=== PATIENT | female | born 1945 | race Caucasian/White ===

== ENCOUNTER 2017-04-18 12:20 | Inpatient (IN) | payer MEDICARE, OTHER ==
--- NOTE | ~2017-04-18 | HP ---
History And Physical [id number] [place]. [address] NAME: BLAIRE GARCÍA : 43 STATUS : ADM Shruti PAT#: [id number] AGE: 72 ADM/REG DATE : 04/18/17 MR#: [id number] REPORT SERV DATE: 04/18/17 DICTATED BY: OSMANY DURAN DATE: 04/18/17 REPORT STATUS : Draft TRANSCRIBED BY: MODL DATE: 04/18/17 DATE OF ADMISSION: 04/18/2017 ATTENDING PHYSICIAN: Dr. Talbert. REASON FOR ADMISSION: Septicemia with acute renal failure. Advanced dementia. HISTORY: This is a 72-year-old white female, who lives at [facility] in [place]. She was hospitalized here in 2014 with dementia and had a tPA for an acute stroke. She has had a decline so that she is bed-ridden there with extension contractures of her ankles. She has a chronic indwelling Freire catheter. She developed nausea, vomiting, diarrhea, and altered mental status and was sent to the emergency room where she was evaluated by Dr. Maki initially. She is not to be resuscitated in the event of cardiac arrest and Dr. Maki has confirmed this with the written DNR order. She is followed by Dr. Royce Talley at the correction. PAST MEDICAL HISTORY: She was hospitalized with DKA in 2014 and subsequently with a stroke. TPA was given and because of her advanced dementia, no clot retrieval was attempted at [facility]. She remains in the correction at [facility] in [place] and is followed by Dr. Talley. No family is here with her. HOME MEDICATIONS: Include the following: Tylenol 325 two p.o. q.4 hours p.r.n. pain; aspirin 81 mg p.o. daily; atenolol 25 mg p.o. b.i.d.; atorvastatin 20 mg p.o. at bedtime; cyproheptadine 4 mg p.o. three times a day; Aricept 10 mg p.o. daily; Lexapro 20 mg p.o. daily; Pepcid 20 mg p.o. at bedtime; hydralazine 50 mg p.o. q.8 hours; hydroxyzine every six hours scheduled for itching; NovoLog before meals and bedtime; Levemir 15 units at bedtime and 17 units in the daytime; losartan 50 mg p.o. daily; Memantine 10 mg p.o. twice a day; Glucophage 500 mg p.o. b.i.d.; mirtazapine 15 mg p.o. at bedtime; nitroglycerin sublingually p.r.n.; acetaminophen 325 q.4 hours p.r.n.; Halfprin; and atenolol 25 mg p.o. b.i.d. ALLERGIES: PENICILLIN. SOCIAL HISTORY: Obtained from old records. The patient was . Her ex- and her grandchildren live with her and help take care of her. She quit smoking cigarettes 20 to 24 years ago. No alcohol was admitted to in the past and there is a denial of illicit drugs. FAMILY HISTORY: Her mother and father are from motor vehicle accident. Siblings are unknown. REVIEW OF SYSTEMS: Not obtainable from the patient who is in an insomnolent and noncommunicative state. PHYSICAL EXAMINATION: History And Physical [address] [address] NAME: BLAIRE GARCÍA : 43 STATUS : ADM Shruti PAT#: [id number] AGE: 72 ADM/REG DATE : 04/18/17 MR#: [id number] REPORT SERV DATE: 04/18/17 DICTATED BY: OSMANY DURAN DATE: 04/18/17 REPORT STATUS : Draft TRANSCRIBED BY: AVELINO DATE: 04/18/17 GENERAL: This is an elderly white female, in no acute distress. VITAL SIGNS: Her blood pressure initially was 125/60 with a heart rate of 70, respiratory rate 16, afebrile, and oxygen saturation 98%. HEENT: EOMI. Sclerae clear. Conjunctivae pink. She opens her eyes and regards me. She made one phonetic guttural utterance and grunting sound but will not speak and not respond to verbal stimulus and will not engage. NECK: No bruit or thyromegaly. CHEST: Clear anteriorly and laterally. HEART: Regular S1, S2 without murmur, gallop, or click. ABDOMEN: Grossly obese. Nontender. Bowel sounds positive. No HSM. She does have flanks with edema bilaterally. EXTREMITIES: She has 1+ pitting edema of her legs. She has extension contractures of the ankles. There are some purple blue areas on the inner rim around the knees. Distal pulses are not palpable. NEUROLOGIC: She does not move to plantar stimulation. Engraver [place], she did not cooperate with gripping. Distal pulses are intact at the radial artery. : There is a Freire catheter in place in the perineum, dark urine. There is a pacemaker in the left chest and anterior surgical incision with likely CABG in the past. NEUROLOGIC: She does not move to plantar stimulation. LYMPHATICS: There is no adenopathy palpable. SKIN: Pale and cool in the hands. LABORATORY DATA: Her white count was 27,900, hemoglobin 10.8, hematocrit 33.7, and platelets are 188,000. Her sodium is 141, potassium 5.7, chloride 108, CO2 of 18, BUN 117, creatinine 4.31, glucose 104, albumin 2.0, and globulin 5.3. Urinalysis showed specific gravity of 1.025 and pH of 8.0. A large leukocyte esterase, small bilirubin, 158 white cells per high-powered field, 5 epithelial squamous cells. Portable chest x-ray shows no acute cardiopulmonary abnormality with CABG and AICD in place. ASSESSMENT: 1. Probably urinary tract infection that has now gone septic. She does have a chronic indwelling Freire catheter. Her white blood cell count elevation, altered mental status, and elevated creatinine are all indicative of severe sepsis. 2. Urinary tract infection. 3. Chronic indwelling Freire catheter. 4. Aphasia. 5. Advanced dementia. 6. Flank edema and lower extremity edema. 7. End-stage renal disease, may be associated with the ARB or the NIKKIE inhibitors. The. 8. The patient is not to be resuscitated in the event of any cardiac arrest. We will give IV fluids. Correct the acidosis. She has been on metformin. She may be having a lactic acidosis. 9. Protein calorie malnutrition. 10.Diabetes type 2. Control blood sugar now. We will reduce the insulin dosing because History And Physical [address] [place]. [address] NAME: BLAIRE GARCÍA : 43 STATUS : ADM Shruti PAT#: [id number] AGE: 72 ADM/REG DATE : 04/18/17 MR#: [id number] REPORT SERV DATE: 04/18/17 DICTATED BY: OSMANY DURAN DATE: 04/18/17 REPORT STATUS : Draft TRANSCRIBED BY: MODL DATE: 04/18/17 she was hypoglycemic on arrival. 11.The patient is aphasic, unable to speak, no family here to interpret, DNR at the correction, we will leave DNR here. I am going to go ahead and treat her urinary tract infection and observe for improvement. Once she returns back to the correction with her AICD, probable systolic congestive heart failure, advanced dementia with no language, she may be a good candidate for hospice care they are within the correction. [place]/AVELINO Osmany Duran M.D. / [id number] CC: Isai Rodriguez MD
--- NOTE | ~2017-04-18 | DS ---
Discharge Summary [facility] [address] [place]. [address] NAME: BLAIRE BROCK : 43 STATUS : DIS IN PAT#: [id number] AGE: 72 ADM/REG DATE : 04/18/17 MR#: [id number] REPORT SERV DATE: 04/21/17 DICTATED BY: ISAI OLIVERA DATE: 04/20/17 REPORT STATUS : Draft TRANSCRIBED BY: MODL DATE: 04/20/17 ADMISSION DATE: 04/18/2017 DISCHARGE DATE: 04/20/2017 DISCHARGE DIAGNOSES: 1. Severe sepsis secondary to Escherichia coli urinary tract infection, and gram-negative monie bacteremia awaiting speciation. 2. Acute renal failure. 3. Hyperkalemia secondary to acute renal failure. 4. Severe dementia with baseline debility, bedridden and nonverbal at baseline. 5. History of stroke. 6. Hypertension. 7. History of automatic implantable cardioverter-defibrillator placement. 8. History of diabetes mellitus. HOSPITAL COURSE: Please refer to the history and physical dictated by admitting physician for full history of this patient. Briefly, this is a patient with severe baseline dementia who lives in a usp with severe debility, who is bed ridden and nonverbal at baseline, who presented from her usp with severe sepsis. Ultimately found to be secondary to an Escherichia coli urinary tract infection as well as a gram-negative monie bacteremia with speciation pending at the time of this dictation. The patient presented in her usual nonverbal state, and was found to have severe sepsis with evidence of end-organ damage including a lactic acidosis as well as a new acute renal failure. She was started on antibiotics and was given IV fluids, which resulted in some improvement in her lactic acidosis. Ultimately her antibiotics were broadened given her history of resistant organisms and she is on cefepime at the time of this dictation. She also presented with acute renal failure with minimal urine output at the first night of her admission despite IV fluids, complicated by hyperkalemia. Her creatinine was 4.31 on admission though with some IV fluids; on last check it had improved to 3.58, she has made a bit more of urine since that time. Given her baseline dementia with severe debility and her baseline bed ridden state, we did discuss her care with both of her daughters, [place], with the assistant professor of education of the palliative care team to discuss her mom's presentation. We talked about the fact that she was quite sick with acute renal failure and severe sepsis with bacteremia, and though we did explain that we felt potentially she could make a turn around and improve a little bit. They did relate to us that their mom many years ago had said to them that she would never want to be in a state that she is in now. Apparently, Ms. Brock's brother had dementia and she was very much afraid of having dementia and being in the hospital. After a very long discussion with the Palliative Care doctors, the daughters did both confirm that their mother would definitely not want to pursue anything like hemodialysis or any sort of invasive procedures or therapeutics even including IV antibiotics or further imaging to workup her condition. This seemed reasonable given the patient's baseline status and so Discharge Summary [address] [id number] [facility] [place]. [address] NAME: BLAIRE BROCK : 43 STATUS : DIS IN PAT#: [id number] AGE: 72 ADM/REG DATE : 04/18/17 MR#: [id number] REPORT SERV DATE: 04/21/17 DICTATED BY: ISAI OLIVERA DATE: 04/20/17 REPORT STATUS : Draft TRANSCRIBED BY: AVELINO DATE: 04/20/17 after much discussion with the family the family decided to transition to hospice care. Given the decision of the family, transition to hospice care, the patient will be discharged today to her usp with all nonessential modifications consistent with comfort to be discontinued. We will discontinue her antibiotics as well as other medications not consistent with comfort per the family's wishes that the patient's new goals of care be focused purely on her comfort. DISCHARGE MEDICATIONS: 1. Aricept 10 mg p.o. at bedtime. 2. Lexapro 20 mg p.o. daily. 3. Mirtazapine 15 mg p.o. at bedtime. 4. Namenda 10 mg p.o. twice per day. 5. Tylenol 650 mg p.o. every 4 hours p.r.n. 6. Zofran 4 mg disintegrating every 4 hours p.r.n. for nausea and vomiting. 7. Senna two tablets p.o. at bedtime p.r.n. for constipation. 8. Hydroxyzine 25 mg p.o. every 6 hours for itching. 9. Cyproheptadine 4 mg p.o. three times daily schedule for itching. 10.Famotidine 20 mg p.o. at bedtime. FOLLOWUP: Again, the patient will be discharged back to her nursing facility with transition to hospice care and comfort measures only. All other nonessential medications have been discontinued. She has not required any narcotics since she has been here, and at the time of this dictation appears very comfortable in her room, though certainly narcotics could be considered should this change. For now her discomfort has been managed well with just Tylenol. Approximately 35 minutes were spent coordinating the discharge of this patient. MIKE/AVELINO Isai Olivera MD / [id number] CC: Isai Olivera MD
[~2017-04-18 12:20] MED LIST: *UNABLE1; APRES50 PO; ARICEPT5 PO; ASAB PO; ATEN25 PO; ATV1 PO; COZ50 PO; DIOV80 PO; DIOVAN PO; DSS PO; FISH OIL PO; FLONASE NAS; GLUCPH PO; GLUMETZA500 MG PO; K-TABS10 MEQ PO; L20 PO; L80 PO; LEVEMIR SC; LEXAPRO20 PO; MEVACOR40 MG PO; NEUR300 PO; NITROSTAT0.4 MG SL; NOVOLOG SC; NOVOLOGMIX SC; PRILOSEC40 MG PO; [UNRECOGNIZED DRUG - OTHER] SC
[2017-04-18 14:05] LABS: ASCORBIC ACID (UR NOT ORDER) NEG (NEG); BILIRUBIN, URINE SMALL (NEG); ER URINALYSIS TAT 0 Hrs 21 Mins; KETONE, URINE NEGATIVE (NEG); LEUKOCYTE ESTERASE(NOT OR LARGE (NEG); NITRITE (URINE) NEG (NEG); WBC (NOT ORDERED) (RFLEX) 158 (0-5)
[2017-04-18 14:27] LABS: BASOPHILS 0.3 %; BASOPHILS ABSOLUTE 0.07 10/3/uL (0.0-0.16); EOSINOPHILS 0.4 %; EOSINOPHILS ABSOLUTE 0.12 10/3/uL (0.0-0.53); HEMATOCRIT 33.7 % (36.0-48.0); HEMOGLOBIN 10.8 g/dL (12.0-16.0); IMMATURE GRANULOCYTES 1.6 %; LYMPHOCYTES 8.8 %; LYMPHOCYTES ABSOLUTE 2.45 10/3/uL (0.67-4.30); MEAN CORPUSCULAR HEMOGLOB 26.1 pg (26.0-34.0); MONOCYTES 8.5 %; MONOCYTES ABSOLUTE 2.36 10/3/uL (0.21-1.20); NEUTROPHILS 80.4 %; NEUTROPHILS ABSOLUTE 22.44 10/3/uL (2.02-8.40); PLATELET COUNT 188 10/3/uL (150-400); RBC DISTRIBUTION WIDTH 15.1 % (12.0-16.0); RED CELL COUNT 4.14 10/6/uL (4.0-5.6)
[2017-04-18 14:31] LABS: ER CBC TAT 0 Hrs 09 Mins; IMMATURE GRANULOCYTES ABSOLUTE 0.45 10/3/uL (0.0-0.11); MANUAL DIFF NO %; MEAN CORPUSCULAR VOLUME 81.4 fL (80-100); WHITE BLOOD CELLS 27.9 10/3/uL (4.5-10.5)
[2017-04-18 14:41] LABS: CALCIUM, SERUM 8.6 MG/DL (8.5-10.4); CHLORIDE, SERUM 106 MMOL/L (96-112); DIRECT BILIRUBIN 0.3 MG/DL (0.0-0.4); INDIRECT BILIRUBIN(NOT ORDER) 0.6 MG/DL (0.1-0.9); SGOT(AST) 51 U/L (5-40); SGPT(ALT) 37 U/L (5-65); TOTAL BILIRUBIN 0.9 MG/DL (0-1.2); TOTAL PROTEIN 7.3 G/DL (6.0-8.5)
[2017-04-18 14:42] LABS: A/G RATIO 0.4 (0.7-1.9); ALKALINE PHOSPHATASE 177 U/L (45-117); BUN (BLOOD UREA NITROGEN) 117 MG/DL (6-23); CO2 (CARBON DIOXIDE) 18 MMOL/L (24-34); CREATININE 4.31 MG/DL (0.55-1.02); GFR AFRICAN AMERICAN 11 ML/MIN (>=60); GFR NON AFRICAN AMERICAN 10 ML/MIN (>=60); GLOBULIN 5.3 G/DL (2.5-4.1); GLUCOSE, SERUM 104 MG/DL (60-99); SODIUM, SERUM 141 MMOL/L (135-148)
[2017-04-18 14:46] LABS: POTASSIUM, SERUM 5.7 MMOL/L (3.5-5.3)
[2017-04-18 14:50] LABS: BAND NEUTROPHILS 3 %; ER DIFF TAT 0 Hrs 28 Mins; LYMPHOCYTES 14 %; LYMPHOCYTES ABSOLUTE (CALC) 3.91 10/3/uL (0.67-4.30); MONOCYTES 2 %; MONOCYTES ABSOLUTE (CALC) 0.56 10/3/uL (0.21-1.20); NEUTROPHILS ABSOLUTE (CALC) 23.44 10/3/uL (2.02-8.40); PLATELET ESTIMATE ADQ (ADEQUATE); RBC MORPHOLOGY NORM (NORMAL); SEGMENTED NEUTROPHIL (0) 81 %; TOTAL NUCLEATED CELLS 100
[2017-04-18] MEDS ORDERED: LEVEMFLXPN SC ×2 (15:10→15:11)
[2017-04-18] MEDS ORDERED: NOVOLOG SC (15:11)
[2017-04-18] MEDS ORDERED: APRES50 PO (15:11)
[2017-04-18] MEDS ORDERED: CYPROHEPTAD4 MG PO (15:12)
[2017-04-18] MEDS ORDERED: HALF81 PO (15:12)
[2017-04-18] MEDS ORDERED: LEXAPRO20 PO (15:12)
[2017-04-18] MEDS ORDERED: COZ50 PO (15:12)
[2017-04-18] MEDS ORDERED: GLUCPH PO (15:13)
[2017-04-18] MEDS ORDERED: VIST25 PO (15:13)
[2017-04-18] MEDS ORDERED: ATEN25 PO (15:13)
[2017-04-18] MEDS ORDERED: NAMENDA10 MG PO (15:13)
[2017-04-18] MEDS ORDERED: PEP20 PO (15:14)
[2017-04-18] MEDS ORDERED: ARICEPT10 PO (15:14)
[2017-04-18] MEDS ORDERED: REM15 PO (15:14)
[2017-04-18] MEDS ORDERED: LIPITOR20 PO (15:14)
[2017-04-18] MEDS ORDERED: NITROSTAT0.4 MG SL (15:15)
[2017-04-18] MEDS ORDERED: T PO (15:15)
[2017-04-19 07:20] LABS: HEMOGLOBIN 9.3 g/dL (12.0-16.0); MEAN PLATELET VOLUME 10.6 fL (9.2-13.0); PLATELET COUNT 192 10/3/uL (150-400); RBC DISTRIBUTION WIDTH 14.9 % (12.0-16.0); RED CELL COUNT 3.58 10/6/uL (4.0-5.6)
[2017-04-19 07:21] LABS: WHITE BLOOD CELLS 26.6 10/3/uL (4.5-10.5)
[2017-04-19 07:22] LABS: HEMATOCRIT 28.2 % (36.0-48.0); MANUAL DIFF YES %; MEAN CORPUSCULAR VOLUME 78.8 fL (80-100)
[2017-04-19 07:30] LABS: BUN (BLOOD UREA NITROGEN) 127 MG/DL (6-23); CALCIUM, SERUM 7.8 MG/DL (8.5-10.4); CHLORIDE, SERUM 107 MMOL/L (96-112); CO2 (CARBON DIOXIDE) 22 MMOL/L (24-34); CREATININE 4.04 MG/DL (0.55-1.02); GFR AFRICAN AMERICAN 12 ML/MIN (>=60); GFR NON AFRICAN AMERICAN 10 ML/MIN (>=60); GLUCOSE, SERUM 198 MG/DL (60-99); POTASSIUM, SERUM 5.4 MMOL/L (3.5-5.3); SODIUM, SERUM 139 MMOL/L (135-148)
[2017-04-19 07:39] LABS: BAND NEUTROPHILS 20 %; LYMPHOCYTES 5 %; LYMPHOCYTES ABSOLUTE (CALC) 1.33 10/3/uL (0.67-4.30); MONOCYTES 5 %; MONOCYTES ABSOLUTE (CALC) 1.33 10/3/uL (0.21-1.20); NEUTROPHILS ABSOLUTE (CALC) 23.94 10/3/uL (2.02-8.40); SEGMENTED NEUTROPHIL (0) 70 %; TOTAL NUCLEATED CELLS 100
[2017-04-19 07:40] LABS: BURR CELLS 1+ (3-10/OIF) (0-2/OIF); PLATELET ESTIMATE ADQ (ADEQUATE); POIKILOCYTOSIS 1+ (5-10/OIF) (0-5/OIF)
[2017-04-19 07:41] LABS: TOXIC GRANULATION 2+
[2017-04-19 12:39] LABS: CREATININE, URINE 60.1 MG/DL
[2017-04-19 17:55] LABS: CALCIUM, SERUM 8.2 MG/DL (8.5-10.4); CHLORIDE, SERUM 106 MMOL/L (96-112); CO2 (CARBON DIOXIDE) 18 MMOL/L (24-34); CREATININE 3.58 MG/DL (0.55-1.02); GFR AFRICAN AMERICAN 14 ML/MIN (>=60); GFR NON AFRICAN AMERICAN 12 ML/MIN (>=60); GLUCOSE, SERUM 230 MG/DL (60-99); POTASSIUM, SERUM 5.5 MMOL/L (3.5-5.3); SODIUM, SERUM 137 MMOL/L (135-148)
[2017-04-19 17:56] LABS: BUN (BLOOD UREA NITROGEN) 120 MG/DL (6-23)
== END 2017-04-20 18:16 | disposition left against medical advice (07) | DRG 698 ==
LOC: ER 12:20 → 5SO 16:01
PROVIDERS: Emergency Medicine; Internal Medicine
DX: T83.518A Infection and inflammatory reaction due to other urinary catheter, initial encounter (principal); A41.9 Sepsis, unspecified organism; R65.20 Severe sepsis without septic shock; N17.9 Acute kidney failure, unspecified; E46 Unspecified protein-calorie malnutrition; N18.6 End stage renal disease; N39.0 Urinary tract infection, site not specified; R47.01 Aphasia; I12.0 Hypertensive chronic kidney disease with stage 5 chronic kidney disease or end stage renal disease; F03.90 Unspecified dementia, unspecified severity, without behavioral disturbance, psychotic disturbance, mood disturbance, and anxiety; Z66 Do not resuscitate; B96.20 Unspecified Escherichia coli [E. coli] as the cause of diseases classified elsewhere; Z86.73 Personal history of transient ischemic attack (TIA), and cerebral infarction without residual deficits; Z74.01 Bed confinement status; E87.5 Hyperkalemia; E11.22 Type 2 diabetes mellitus with diabetic chronic kidney disease; Z51.5 Encounter for palliative care; Z79.899 Other long term (current) drug therapy; Z79.82 Long term (current) use of aspirin; Z79.4 Long term (current) use of insulin; Z88.0 Allergy status to penicillin; Z87.891 Personal history of nicotine dependence
CPT/HCPCS: 71010; 80048; 80053; 81001; 82248; 82570; 82962; 83605; 83690; 84134; 84300; 85025; 87040; 87077; 87086; 87150; 87186; 93005; 99285; A9270-GY; J0692